=== PATIENT | male | born 1930 | race Caucasian/White ===

== ENCOUNTER 2020-09-27 11:58 | Outpatient (CLI) | payer MEDICARE ==
--- NOTE | 2020-09-27 12:53 | RAD ---
EXAM: XR Chest Pa Lat STANDARD PROVIDED CLINICAL HISTORY: Atrial fibrillation COMPARISON: 01/01/2016 FINDINGS: The cardiac and mediastinal silhouette are unchanged in appearance. Vascular calcification is noted i nvolving the aortic arch. Scattered interstitial opacities appear similar to prior. Mild pulmonary vascular congestion. Bilateral pleural fluid. No focal consolidation or pneumothorax evident. Calcifi ed granuloma right upper lung zone. IMPRESSION: Pulmonary vascular congestion and bilateral pleural fluid, suggesting congestive failure.
== END 2020-09-27 11:59 | disposition home or self-care (01) ==
LOC: BICRAD 11:58
PROVIDERS: ATTEND Internal Medicine Cardiovascular Disease
DX: I48.0 Paroxysmal atrial fibrillation (principal); R06.02 Shortness of breath; R09.89 Other specified symptoms and signs involving the circulatory and respiratory systems
CPT/HCPCS: 71046

== ENCOUNTER 2020-10-12 15:38 | Inpatient (IN) | payer MEDICARE ==
[2020-10-12 18:53] LABS: #Basophils 0.1 thou/uL (0.0-0.2); #Eosinphils 0.3 thou/uL (0.0-0.7); #Lymphocytes 0.8 thou/uL (1.20-3.40); #Monocytes 0.7 thou/uL (0.11-0.59); #Neutrophils 5.4 thou/uL (1.40-6.50); %Basophils 0.9 % (0.0-1.0); %Eosinophils 4.1 % (0.0-10.0); %Lymphocytes 11.5 % (21.0-51.0); %Monocytes 9.4 % (0.0-10.0); %Neutrophils 74.2 % (42.0-75.0); Hemoglobin 12.8 g/dL (14.0-18.0); Mean Corpuscular HGB CONC 32.3 g/dL (32.0-36.0); Mean Corpuscular Hemoglobin 32.6 pg (27.0-31.0); Mean Platelet Volume 8.6 fL (7.4-10.4); Platelet Count 202 thou/uL (130-400); Red Blood Cell (RBC) Count 3.93 mill/uL (4.70-6.10); White Blood Cell (WBC) Count 7.3 thou/uL (4.8-10.8)
--- NOTE | 2020-10-12 19:03 | RAD ---
PORTABLE CHEST ONE VIEW: 10/12/20 at 6:41 p.m. HISTORY: CHF. COMPARISON: 09/27/20. FINDINGS: The heart size is borderline. The aorta is tortuous. No lobar consolidation, pneumothoraces, joshua pu lmonary edema or pleural effusions are seen. IMPRESSION: No acute process. POS: ARMIDAA
[2020-10-12 19:15] LABS: ALT (SGPT) 23 U/L (8-55); AST (SGOT) 24 U/L (5-34); Albumin 4.4 g/dL (3.4-4.8); Alkaline Phosphatase 109 U/L (40-110); Anion Gap 12 mmol/L (10-20); BUN (Urea Nitrogen) 18 mg/dL (8.4-25.7); Bilirubin, Total 0.3 mg/dL (0.2-1.2); Calc. Creatinine Clearance 41 mL/min (70-130); Calcium 8.7 mg/dL (7.8-10.44); Carbon Dioxide 25 mmol/L (23-31); Chloride 105 mmol/L (98-107); Globulin 2.7 g/dL (2.4-3.5); Glucose 75 mg/dL (83-110); Potassium 4.7 mmol/L (3.5-5.1); Protein, Total 7.1 g/dL (5.8-8.1); Sodium 137 mmol/L (136-145)
[2020-10-12] MEDS ORDERED: Nitroglycerin 0.4 MG TAB (25 Tab Bottle) SL PRN (19:57)
[2020-10-12] MEDS ORDERED: Milk Of Magnesia 30 ML UDCUP PO PRN (19:59)
[2020-10-12] MEDS ORDERED: Zolpidem Tartrate 5 MG TAB PO PRN (19:59)
[2020-10-12] MEDS ORDERED: Aspirin 325 mg Enteric Coated Tablet PO SCH (20:00)
[2020-10-12] MEDS ORDERED: Acetaminophen 325 MG TAB PO PRN (20:00)
[2020-10-12 20:06] LABS: Bacteria/HPF None Seen HPF (None Seen); Bilirubin Negative (Negative); Blood, Urine Negative (Negative); Clarity Clear (Clear); Glucose, Urine (Dipstick) Normal (Negative); Ketone, Urine Negative (Negative); Leukocyte Negative Leu/uL (Negative); Nitrite Negative (Negative); Protein, Urine (Dipstick) Negative (Neg-Trace); RBC/HPF 0-3 HPF (0-3); Specific Gravity, Urine 1.008 (1.002-1.036); Squamous Epithelial None Seen HPF (0-3); Urobilinogen Normal mg/dL (Less than 2); WBC/HPF 0-3 HPF (0-3); pH, Urine 6.5 (5.0-9.0)
[2020-10-12] MEDS: Simvastatin 10 MG TAB PO SCH (20:58)
[2020-10-12] MEDS: hydrALAZINE 25 MG TAB PO SCH (20:58)
[2020-10-12] MEDS: Amiodarone 200 MG TAB PO SCH (20:59)
[2020-10-12] MEDS: Carvedilol 6.25 MG TAB PO SCH (20:59)
[2020-10-12] MEDS: Enoxaparin Sodium 80 MG/0.8 ML SYRINGE SC SCH (21:00)
[2020-10-12] MEDS: Docusate 100 MG CAP PO SCH (21:00)
[2020-10-12] MEDS: Lisinopril 20 MG TAB PO SCH (21:00)
[2020-10-13] MEDS ORDERED: cloNIDine 0.1 MG TAB PO PRN (00:47)
[2020-10-13 04:51] LABS: Digoxin 0.91 ng/mL (0.8-2.0)
[2020-10-13 04:52] LABS: Anion Gap 14 mmol/L (10-20); BUN (Urea Nitrogen) 16 mg/dL (8.4-25.7); Calc. Creatinine Clearance 45 mL/min (70-130); Calcium 8.8 mg/dL (7.8-10.44); Carbon Dioxide 24 mmol/L (23-31); Cardiac Risk 2.6 (Less than 4.5); Chloride 105 mmol/L (98-107); Cholesterol 111 mg/dl (< 200 Desired); Glucose 97 mg/dL (83-110); HDL Cholesterol 42 mg/dL (>60 Neg Risk); LDL Cholesterol, Calculated 58 mg/dL; Potassium 4.7 mmol/L (3.5-5.1); Sodium 138 mmol/L (136-145); Triglycerides 56 mg/dL (Less than 150)
[2020-10-13 04:55] LABS: SARS-CoV-2 PCR by NAA Not Detected (NotDetected)
[2020-10-13] MEDS ORDERED: Aspirin 325 mg Enteric Coated Tablet PO SCH (09:00)
--- NOTE | 2020-10-13 09:45 | HP ---
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 He was seen for yearly treadmills and all were negative. 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 With hyperventilation and massage to the eye, the retinal artery occlusion resolved. He had this symptom for approximately 1 hour. Carotid Doppler was unremarkable as well as CT angiogram of the head did not show any significant stenosis. Echocardiogram revealed ejection fraction of 55% to 60% with moderate aortic regurgitation, moderate tricuspid regurgitation, mild pulmonic regurgitation, moderate mitral regurgitation. He had a monitor placed which did not show any significant arrhythmias. He also underwent transesophageal echo which from my recollection did not show any intracardiac thrombus, although I cannot pull up that finding since the old [employer] is unavailable at this time. He then presented to emergency room in December 2015, was found to be in atrial fibrillation. He was given Versed 5 mg IV and cardioverted x2 by the emergency room physician, remained in atrial fibrillation. He was sent home on Eliquis and Multaq 400 b.i.d. He was seen in the office later that day and we discussed possible options. He then returned one week later and had converted with p.o. Multaq back to sinus rhythm. He returned again in March 2017 and was in atrial fibrillation. He had decided on his own to only take 1/2 of the Eliquis 5 mg b.i.d. and 1/2 of the Multaq 400 b.i.d. He was told to go back to 5 mg b.i.d. of the Eliquis and Multaq 400 b.i.d. When he was seen two weeks later, he is back in normal sinus rhythm. He has had problems with bradycardia with heart rates in the upper 30s to lower 40s. However, he has not had any problems with lightheadedness, dizziness, or syncope. In December 2018, he returned and was in atrial fibrillation with controlled ventricular response. 3 to 4 weeks later, he returned qand clinically, he was in sinus rhythm, but declined having an EKG done. He did well until he returned again on January 09, 2020, and he had a fast heart rate for 48 hours. He did increase his carvedilol to 12.5 b.i.d., but still had a tachycardia. He had atrial tachycardia and digoxin was added. He returned four days later and was back in sinus bradycardia, 43 beats per minute. He returned again on May 25, 2020, back in atrial fibrillation and we discussed possible radiofrequency ablation. He was sent to Electrophysiology, but no specific decision had been made in regard to possible ablation. He returned on September 28, 2020, complaining of increased shortness of breath with exertion. He also had significant peripheral edema approximately 2+. He was in sinus rhythm. Chest x-ray showed bilateral pleural effusions as well as increased pulmonary vascularity. He was placed on furosemide 20 mg q.a.m. He returned on October 08, 2020, and his breathing had significantly improved. He continued to be bradycardic with heart rates 48 per minute, and carvedilol was reduced from 25 mg q.a.m., 50 mg q.p.m. to 1/2 of the 25 mg b.i.d., and hydralazine 50 t.i.d. was added. His furosemide was increased to 40 mg every day. He returned again on October 10 and continued to not complain any further shortness of breath. It was felt that he needed to be admitted and diuresed adequately and then undergo further evaluation of his aortic valve. Echocardiogram on September 27, 2020, revealed the study be technically difficult. There was mild left ventricular hypertrophy with ejection fraction of 55% to 60%, moderate left atrial enlargement, moderate aortic regurgitation, severe aortic stenosis with peak gradient of 79 mm, mean gradient 45 mm. However, the aortic valve area calculated to be 1.64 cm2. There was moderate mitral annular calcification, moderate mitral regurgitation, moderate tricuspid regurgitation, moderate elevation of pulmonary artery systolic pressure. 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 OPERATIONS: Cataract surgery, left shoulder surgery, tonsillectomy, squamous cell carcinoma removal. MEDICATIONS: 1. Carvedilol 25 mg 1/2 tablet b.i.d. 2. Lisinopril 40 mg daily. 3. Hydralazine 50 mg t.i.d. 4. Furosemide 40 mg p.o. q.a.m. 5. Eliquis 5 mg b.i.d. 6. Amlodipine 10 mg daily. 7. Digoxin 0.125 daily. 8. Multaq 400 mg b.i.d. 9. Pravastatin 20 mg at bedtime. ALLERGIES: NONE. SOCIAL HISTORY: He does not smoke or drink. FAMILY HISTORY: Father of intracranial hemorrhage. No history of coronary artery disease. REVIEW OF SYSTEMS: Unremarkable. PHYSICAL EXAMINATION: VITAL SIGNS: Blood pressure 149/79, pulse of 42, sinus rhythm on the monitor. HEENT: PERRL. NECK: Supple. CHEST: Clear. CARDIAC: S1 and S2 normal without any S3 or S4. There is a 2-3/6 systolic ejection murmur heard throughout the precordium. ABDOMEN: Normal bowel sounds without tenderness or organomegaly. EXTREMITIES: Revealed 2+ pretibial edema. NEUROLOGIC: Grossly intact. SKIN: Warm and dry. LABORATORY DATA: EKG revealed sinus bradycardia with rate of 53 per minute, minimal voltage criteria for LVH, nonspecific ST-segment changes. Chest x-ray revealed borderline cardiomegaly, but no other significant abnormalities. The pleural effusions have resolved. COVID negative. Hemoglobin 12.8, hematocrit 39.7, white count 7300, platelets 202,000. Sodium 138, potassium 4.7, chloride 105, carbon dioxide 24, BUN 16, creatinine 1.19. Cholesterol 111, triglycerides 56, HDL 42, LDL 58, digoxin 0.91. Urinalysis is unremarkable. IMPRESSION: 1. Acute on chronic diastolic heart failure. Thee are potential multiple etiologies of this. Certainly his aortic stenosis is playing a major role. Bradycardia may also be contributing and possible fluid retention from Multaq may be contributing to this as well. 2. Severe aortic stenosis on echo. 3. Paroxysmal atrial fibrillation. 4. Severe sinus bradycardia, although he does not appear to be overly symptomatic from this. 5. History of paroxysmal atrial tachycardia, which resolved with p.o. digoxin. 6. Hypertension. 7. Hypercholesterolemia. 8. History of left eye retinal artery occlusion in 2007 with negative transesophageal echo. 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 Multaq will be discontinued and will be transitioned to amiodarone. Also his carvedilol dose will be reduced and hydralazine dose increased. Once he has been adequately diuresed, he will undergo cardiac catheterization. Risks of this are discussed including , myocardial infarction, dye reaction, vascular injury, CVA, transfusion, limb loss, renal loss, etc. If he does have one or two vessel disease, that can be adequately stented prior to possible TAVR, this will be performed. Additional risks of this were discussed including , myocardial infarction, emergent CABG, restenosis, stent thrombosis, vessel perforation, etc. He understands and is agreeable to proceed. His Eliquis will be discontinued and he will be transitioned to Lovenox. Job ID: [id number] [facility]
[2020-10-13] MEDS: Digoxin 0.125 MG TAB PO SCH (09:59)
[2020-10-13] MEDS: Docusate 100 MG CAP PO SCH ×2 (09:59→20:29)
[2020-10-13] MEDS: Furosemide 40 MG/4 ML VIAL SLOW IVP SCH ×2 (09:59→15:07)
[2020-10-13] MEDS: hydrALAZINE 25 MG TAB PO SCH ×3 (09:59→20:30)
[2020-10-13] MEDS: Lisinopril 20 MG TAB PO SCH ×2 (10:00→20:30)
[2020-10-13] MEDS: Amlodipine 10 MG TAB PO SCH (10:00)
[2020-10-13] MEDS: Amiodarone 200 MG TAB PO SCH ×2 (10:00→20:29)
[2020-10-13] MEDS: Carvedilol 6.25 MG TAB PO SCH ×2 (10:00→20:30)
[2020-10-13] MEDS: Enoxaparin Sodium 80 MG/0.8 ML SYRINGE SC SCH ×2 (10:01→20:29)
[2020-10-13 10:50] VITALS: BMI 24.5
[2020-10-13] MEDS: Simvastatin 10 MG TAB PO SCH (20:28)
[2020-10-14 05:12] LABS: Anion Gap 9 mmol/L (10-20); BUN (Urea Nitrogen) 25 mg/dL (8.4-25.7); Calc. Creatinine Clearance 34 mL/min (70-130); Calcium 8.4 mg/dL (7.8-10.44); Carbon Dioxide 27 mmol/L (23-31); Chloride 104 mmol/L (98-107); Glucose 84 mg/dL (83-110); Potassium 4.2 mmol/L (3.5-5.1); Sodium 136 mmol/L (136-145)
[2020-10-14] MEDS: Docusate 100 MG CAP PO SCH ×2 (11:03→22:35)
[2020-10-14] MEDS: Lisinopril 20 MG TAB PO SCH ×2 (11:03→22:38)
[2020-10-14] MEDS: Amiodarone 200 MG TAB PO SCH ×2 (11:04→22:37)
[2020-10-14] MEDS: hydrALAZINE 25 MG TAB PO SCH ×3 (11:04→22:36)
[2020-10-14] MEDS: Amlodipine 10 MG TAB PO SCH (11:05)
[2020-10-14] MEDS: Furosemide 40 MG/4 ML VIAL SLOW IVP SCH ×2 (11:05→15:40)
[2020-10-14] MEDS: Enoxaparin Sodium 80 MG/0.8 ML SYRINGE SC SCH ×2 (11:06→22:39)
[2020-10-14] MEDS: Carvedilol 6.25 MG TAB PO SCH ×2 (11:07→22:38)
[2020-10-14] MEDS: Digoxin 0.125 MG TAB PO SCH (11:07)
[2020-10-14] MEDS: Simvastatin 10 MG TAB PO SCH (22:37)
[2020-10-15 05:46] LABS: Anion Gap 14 mmol/L (10-20); BUN (Urea Nitrogen) 24 mg/dL (8.4-25.7); Calc. Creatinine Clearance 36 mL/min (70-130); Calcium 8.6 mg/dL (7.8-10.44); Carbon Dioxide 22 mmol/L (23-31); Chloride 104 mmol/L (98-107); Glucose 85 mg/dL (83-110); Sodium 136 mmol/L (136-145)
[2020-10-15] MEDS: Amlodipine 10 MG TAB PO SCH (10:06)
[2020-10-15] MEDS: Amiodarone 200 MG TAB PO SCH ×2 (10:06→21:52)
[2020-10-15] MEDS: Docusate 100 MG CAP PO SCH ×2 (10:06→21:51)
[2020-10-15] MEDS: Lisinopril 20 MG TAB PO SCH ×2 (10:07→21:50)
[2020-10-15] MEDS: hydrALAZINE 25 MG TAB PO SCH ×3 (10:07→21:52)
[2020-10-15] MEDS: Enoxaparin Sodium 80 MG/0.8 ML SYRINGE SC SCH (10:08)
[2020-10-15] MEDS: Carvedilol 6.25 MG TAB PO SCH ×2 (10:50→21:55)
[2020-10-15] MEDS: Digoxin 0.125 MG TAB PO SCH (10:50)
[2020-10-15] MEDS ORDERED: Communication Order-Pharmacy FS SCH (14:00)
[2020-10-15] MEDS ORDERED: Sodium Chloride 0.9% 1,000 ML IV SCH (14:00)
[2020-10-15] MEDS: Simvastatin 10 MG TAB PO SCH (21:54)
[2020-10-16 05:26] LABS: Anion Gap 14 mmol/L (10-20); BUN (Urea Nitrogen) 21 mg/dL (8.4-25.7); Calc. Creatinine Clearance 38 mL/min (70-130); Calcium 8.8 mg/dL (7.8-10.44); Carbon Dioxide 23 mmol/L (23-31); Chloride 104 mmol/L (98-107); Glucose 94 mg/dL (83-110); Potassium 4.5 mmol/L (3.5-5.1); Sodium 136 mmol/L (136-145)
[2020-10-16] MEDS: Docusate 100 MG CAP PO SCH ×2 (05:58→19:20)
[2020-10-16] MEDS: hydrALAZINE 25 MG TAB PO SCH ×3 (05:59→19:21)
[2020-10-16] MEDS: Amiodarone 200 MG TAB PO SCH ×2 (06:00→19:18)
[2020-10-16] MEDS: Lisinopril 20 MG TAB PO SCH ×2 (06:00→19:21)
[2020-10-16] MEDS: Amlodipine 10 MG TAB PO SCH (06:00)
[2020-10-16] MEDS ORDERED: Sodium Chloride 0.9% 1,000 ML IV SCH ×3 (06:00→08:45)
[2020-10-16] MEDS: Carvedilol 6.25 MG TAB PO SCH ×2 (06:03→19:18)
[2020-10-16] MEDS: Digoxin 0.125 MG TAB PO SCH (06:04)
[2020-10-16] MEDS ORDERED: Heparin 10,000 UNITS/ 10 ML VIAL ONE (06:36)
[2020-10-16] MEDS ORDERED: Fentanyl 100 MCG/2 ML VIAL ONE (07:12)
[2020-10-16] MEDS ORDERED: Midazolam HCl 2 mg/2 ml Vial ONE (07:12)
[2020-10-16] MEDS ORDERED: Protamine Sulfate 50 MG/5 ML VIAL ONE (08:24)
[2020-10-16] MEDS ORDERED: Sodium Chloride 0.9% 200 ML IV PRN (08:32)
[2020-10-16] MEDS ORDERED: Nitroglycerin 0.4 MG TAB (25 Tab Bottle) SL PRN (08:32)
[2020-10-16] MEDS ORDERED: Acetaminophen/Codeine 30-300mg Tablet PO PRN ×2 (08:32)
[2020-10-16] MEDS ORDERED: Iopamidol 370 76% 50 ML VIAL FS ONE (09:46)
[2020-10-16] MEDS ORDERED: Iopamidol 370 76% 100 ML VIAL ONE (09:46)
[2020-10-16 15:58] VITALS: TEMP 98.3
[2020-10-16] MEDS: Simvastatin 10 MG TAB PO SCH (19:21)
[2020-10-16 19:25] VITALS: BP 153/67
--- NOTE | 2020-10-17 08:13 | DIS ---
DATE OF ADMISSION: 10/12/2020 DATE OF DISCHARGE: 10/16/2020 DISCHARGE DIAGNOSES: 1. [id number] diastolic heart failure. 2. Severe aortic stenosis. 3. Mild coronary artery disease. 4. Paroxysmal atrial fibrillation. 5. History of paroxysmal atrial tachycardia converted with p.o. digoxin as an outpatient in the past. 6. Severe sinus bradycardia. Carvedilol dose reduced, questionable if any symptoms. 7. Hypertension. 8. Hypercholesterolemia, under good control. 9. History of left eye retinal artery occlusion in 2007 with negative transesophageal echo. DISCHARGE MEDICATIONS: 1. Amiodarone 400 mg b.i.d. 2. Amlodipine 10 mg daily. 3. Carvedilol 6.25 b.i.d. 4. Clonidine 0.1 mg q.6 hours p.r.n. 5. Digoxin 0.125 daily. 6. Hydralazine 100 mg t.i.d. 7. Lisinopril 20 mg b.i.d. 8. Nitroglycerin p.r.n. 9. Simvastatin 10 mg daily. 10. Primidone 150 mg at bedtime. DISCHARGE DISPOSITION: The patient to be transferred to [facility] in [place] under the care of Dr. Branham for transcatheter aortic valve replacement. 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 He was placed on Lasix with improvement in his breathing, but continued with peripheral edema. It was felt this is probably due to diastolic heart failure related to his aortic stenosis, but other possibilities could be fluid retention with Multaq as well as due to his bradycardia. He was admitted and treated with intravenous diuretics with good response. His peripheral edema completely resolved. Carvedilol dose was reduced from 25 mg q.a.m. and 50 q.p.m. to 6.25 b.i.d., and hydralazine dose was increased. Heart rates in general were in the upper 40s, lower 50s for the most part during this hospitalization. Multaq also was discontinued instead placed on amiodarone 400 mg b.i.d. for a loading dose. He remained in sinus rhythm, although bradycardic during the entire hospital stay. His creatinine increased to 1.55 and IV furosemide was discontinued. He was given gentle hydration today prior to catheterization and his creatinine came down to 1.32. He underwent cardiac catheterization, which revealed normal left ventricular function with ejection fraction of 60% to 65%. Aortic valve area 0.98 cm2. There was 20% 1st obtuse marginal lesion, 20% ostial RCA, 20% mid RCA, and 20% distal RCA. Dr. Branham in [place] was contacted and he accepted the patient in transfer for TAVR. Job ID: [id number]
--- NOTE | 2020-10-19 13:54 | EKG ---
Test Reason : CP Blood Pressure : / mmHG Vent. Rate : 052 BPM Atrial Rate : 052 BPM P-R Int : 176 ms QRS Dur : 098 ms QT Int : 474 ms P-R-T Axes : 067 006 039 degrees QTc Int : 440 ms Sinus bradycardia Minimal voltage criteria for LVH, may be normal variant Nonspecific ST abnormality Abnormal ECG No previous ECGs available Confirmed by DR. Gianluca KOO ([id number]) on 10/19/2020 1:54:31 PM Referred By: JACOB Confirmed By:DR. Gianluca KOO
== END 2020-10-16 20:50 | disposition home or self-care (01) | DRG 286 ==
LOC: 2NO 16:56
PROVIDERS: ADMIT Internal Medicine Cardiovascular Disease; ATTEND Internal Medicine Cardiovascular Disease
PROC: 4A023N8 Measurement of Cardiac Sampling and Pressure, Bilateral, Percutaneous Approach (ICD-10-PCS; principal; 2020-10-16)
PROC: B2161ZZ Fluoroscopy of Right and Left Heart using Low Osmolar Contrast (ICD-10-PCS; 2020-10-16)
DX: I35.0 Nonrheumatic aortic (valve) stenosis (principal); I50.33 Acute on chronic diastolic (congestive) heart failure; Z20.822 Contact with and (suspected) exposure to COVID-19; H54.40 Blindness, one eye, unspecified eye; I37.1 Nonrheumatic pulmonary valve insufficiency; I48.0 Paroxysmal atrial fibrillation; I49.5 Sick sinus syndrome; G47.33 Obstructive sleep apnea (adult) (pediatric); E78.00 Pure hypercholesterolemia, unspecified; I25.10 Atherosclerotic heart disease of native coronary artery without angina pectoris; I10 Essential (primary) hypertension; Z98.890 Other specified postprocedural states; Z79.01 Long term (current) use of anticoagulants; Z79.899 Other long term (current) drug therapy
CPT/HCPCS: 36415; 71045; 76942; 80048; 80053; 80061; 80162; 81001; 85025; 85347; 87635; 93005; 93010; 93460; 93567; 94760; 99152; 99153; J1644; J1650; J1940; J2250; J2720; J3010; Q9967; U0003; U0005

== ENCOUNTER 2020-12-19 12:29 | Outpatient (CLI) | payer MEDICARE ==
[2020-12-19 14:38] LABS: #Basophils 0.1 10x3/uL (0.0-0.2); #Eosinphils 0.1 10x3/uL (0.0-0.5); #Monocytes 0.4 10x3/uL (0.0-1.1); #Neutrophils 4.5 10x3/uL (1.5-8.4); %Basophils 0.9 % (0.0-2.0); %Eosinophils 2.2 % (0.0-6.0); %Lymphocytes 11.7 % (18.0-47.0); %Monocytes 7.2 % (0.0-10.0); %Neutrophils 77.7 % (40.0-75.0); Hemoglobin 12.7 g/dL (13.5-17.5); Mean Corpuscular HGB CONC 32.8 g/dL (32.0-36.0); Mean Corpuscular Hemoglobin 31.8 pg (27.0-33.0); Mean Platelet Volume 11.1 fl (7.4-10.4); Platelet Count 199 10x3/uL (150-450); RBC Distribution Width 13.1 % (11.5-14.5); Red Blood Cell (RBC) Count 3.99 10x6/uL (4.32-5.72); White Blood Cell (WBC) Count 5.8 10x3/uL (3.5-10.5)
[2020-12-19 14:58] LABS: Anion Gap 16 mmol/L (10-20); BUN (Urea Nitrogen) 15 mg/dL (8.4-25.7); Calc. Creatinine Clearance 0 mL/min (70-130); Calcium 8.9 mg/dL (7.8-10.44); Carbon Dioxide 24 mmol/L (23-31); Chloride 104 mmol/L (98-107); Glucose 91 mg/dL (83-110); Potassium 5.1 mmol/L (3.5-5.1); Sodium 139 mmol/L (136-145)
[2020-12-20 04:12] LABS: SARS-CoV-2 PCR by NAA Not Detected (NotDetected)
== END 2020-12-19 12:30 | disposition home or self-care (01) ==
LOC: LABBT 12:29
PROVIDERS: ATTEND Internal Medicine Cardiovascular Disease
DX: Z01.818 Encounter for other preprocedural examination (principal); Z20.822 Contact with and (suspected) exposure to COVID-19
CPT/HCPCS: 80048; 85025; 93005; U0003; U0005; 87635; 93010

== ENCOUNTER 2020-12-21 10:02 | Observation (INO) | payer MEDICARE ==
[2020-12-20 08:07] VITALS: BMI 23.6
[~2020-12-21 10:02] MED LIST: Iopamidol 370 76% 50 ML VIAL FS ONE
[2020-12-21] MEDS ORDERED: CEFAZOLIN 1 GM VIAL ONE (11:28)
[2020-12-21] MEDS ORDERED: Gentamicin 80 MG/2 ML VIAL ONE (11:28)
[2020-12-21] MEDS ORDERED: Lidocaine 1% (PF) 30 ML VIAL ONE (11:42)
[2020-12-21] MEDS ORDERED: Midazolam HCl 2 mg/2 ml Vial ONE (12:33)
[2020-12-21] MEDS ORDERED: Fentanyl 100 MCG/2 ML VIAL ONE (12:33)
[2020-12-21] MEDS ORDERED: cloNIDine 0.1 MG TAB PO PRN (14:29)
[2020-12-21] MEDS ORDERED: Nitroglycerin 0.4 MG TAB (25 Tab Bottle) SL PRN (14:31)
[2020-12-21] MEDS ORDERED: Carvedilol 6.25 MG TAB ONE (14:42)
[2020-12-21] MEDS ORDERED: Carvedilol 6.25 MG TAB PO SCH (14:45)
[2020-12-21] MEDS ORDERED: traMADol HCl 50 MG TAB ONE (15:01)
[2020-12-21] MEDS ORDERED: traMADol HCl 50 MG TAB PO SCH (15:15)
[2020-12-21] MEDS ORDERED: cloNIDine 0.1 MG TAB ONE (15:40)
[2020-12-21] MEDS ORDERED: Morphine 4 MG/ML VIAL ONE (15:45)
[2020-12-21] MEDS: Cephalexin 250 MG CAP PO SCH ×2 (15:56→21:17)
[2020-12-21] MEDS ORDERED: Morphine 2 MG/ML VIAL SLOW IVP PRN (15:57)
[2020-12-21] MEDS: Morphine 4 MG/ML VIAL SLOW IVP PRN ×2 (16:11→19:58)
[2020-12-21] MEDS ORDERED: Clopidogrel Bisulfate 75 MG TAB PO SCH (21:00)
[2020-12-21] MEDS ORDERED: Simvastatin 10 MG TAB PO SCH (21:00)
[2020-12-21] MEDS: Carvedilol 6.25 MG TAB PO SCH (21:16)
[2020-12-21] MEDS: hydrALAZINE 25 MG TAB PO SCH (21:17)
[2020-12-22] MEDS: Cephalexin 250 MG CAP PO SCH (07:42)
[2020-12-22] MEDS: Carvedilol 6.25 MG TAB PO SCH (07:42)
[2020-12-22] MEDS: hydrALAZINE 25 MG TAB PO SCH (07:42)
[2020-12-22] MEDS ORDERED: Amiodarone 200 MG TAB PO SCH (09:00)
[2020-12-22] MEDS ORDERED: Primidone 250 MG TAB PO SCH (09:00)
[2020-12-22] MEDS ORDERED: Docusate 100 MG CAP PO SCH (09:00)
[2020-12-22 10:53] LABS: Hemoglobin 12.4 g/dL (14.0-18.0); Platelet Count 173 thou/uL (130-400)
[2020-12-22 11:35] VITALS: BP 126/62; TEMP 98.2
[2020-12-24] MEDS ORDERED: Apixaban 5 MG TAB PO SCH (09:00)
== END 2020-12-22 11:45 | disposition home or self-care (01) ==
LOC: SDC 10:02 → 2SW 14:26
PROVIDERS: ADMIT Internal Medicine Cardiovascular Disease; ATTEND Internal Medicine Cardiovascular Disease
PROC: 0JH606Z Insertion of Pacemaker, Dual Chamber into Chest Subcutaneous Tissue and Fascia, Open Approach (ICD-10-PCS; principal; 2020-12-21)
PROC: 02H63JZ Insertion of Pacemaker Lead into Right Atrium, Percutaneous Approach (ICD-10-PCS; 2020-12-21)
PROC: 02HK3JZ Insertion of Pacemaker Lead into Right Ventricle, Percutaneous Approach (ICD-10-PCS; 2020-12-21)
DX: I49.5 Sick sinus syndrome (principal); I44.7 Left bundle-branch block, unspecified; I25.10 Atherosclerotic heart disease of native coronary artery without angina pectoris; G47.30 Sleep apnea, unspecified; I47.1 Supraventricular tachycardia; I11.0 Hypertensive heart disease with heart failure; I48.0 Paroxysmal atrial fibrillation; I50.33 Acute on chronic diastolic (congestive) heart failure; E78.00 Pure hypercholesterolemia, unspecified; E87.5 Hyperkalemia; Z79.01 Long term (current) use of anticoagulants; Z79.02 Long term (current) use of antithrombotics/antiplatelets; Z79.899 Other long term (current) drug therapy; Z88.2 Allergy status to sulfonamides; Z95.2 Presence of prosthetic heart valve
CPT/HCPCS: 33208; 36005; 71045; 75820; 82565; 85014; 85018; 85049; 93005 ×2; 96374; C1785; C1898 ×2; G0378 ×2; 36415; 93010; 99152; 99153; J0690; J1580; J2001; J2250; J2270; J3010; Q9967

== ENCOUNTER 2021-07-22 10:48 | Outpatient (CLI) | payer MEDICARE | END 2021-07-22 10:49 | disposition home or self-care (01) | LOC: BICRAD 10:48 | PROVIDERS: ATTEND Internal Medicine Cardiovascular Disease | DX: I48.0 Paroxysmal atrial fibrillation (principal) | CPT/HCPCS: 71046 ==

== ENCOUNTER 2022-01-27 09:11 | Outpatient (CLI) | payer MEDICARE | END 2022-01-27 09:12 | disposition home or self-care (01) | LOC: BICRAD 09:11 | PROVIDERS: ATTEND Internal Medicine Cardiovascular Disease | DX: I48.0 Paroxysmal atrial fibrillation (principal) | CPT/HCPCS: 71046 ==